=== PATIENT | male | born 1930 | race Caucasian/White ===

== ENCOUNTER 2017-11-15 08:04 | Outpatient (CLI) | payer MEDICARE ==
[2017-11-15] MEDS ORDERED: Iopamidol 370 76% 100 ML VIAL ONE (09:00)
[2017-11-15 09:02] LABS: Estimated GFR-MDRD - POC Greater than 90
--- NOTE | 2017-11-15 10:55 | CT ---
CT ABDOMEN AND PELVIS WITH ORAL AND IV CONTRAST: HISTORY: Gastric stromal tumor removed 2 months ago. FINDINGS: A small left pleural effusion is present. There is a small amount of free fluid in the abdomen, part icularly adjacent to the spleen. No calcified gallstones are seen. The spleen, pancreas, adrenal glands, and kidneys are unremarkable. There is a tiny low-density lesi on in the posterior aspect of the right lobe of the liver close to the joint. This is too small to c haracterize. No free air is seen in the abdomen or pelvis. No lymphadenopathy is seen in the abdome n or pelvis. The small bowel loops are not abnormally dilated. There is prostatic enlargement with thickening of the wall of the urinary bladder. There is a fat-containing right inguinal hernia. There are vascular calcifications without evidence of aneurysmal dilatation of the abdominal aorta. Degenerative changes are present in the spine. The re are a few scattered colonic diverticula. IMPRESSION: 1. Small left pleural effusion. 2. Mild ascites. 3. Tiny low-density lesion in the liver, too small to characterize. 4. Prostatic enlargement with urinary bladder wall thickening. 5. If there is concern for gastric pathology, further evaluation with endoscopy should be performed. 6. Mild colonic diverticulosis. POS: [facility]
== END 2017-11-15 08:05 | disposition home or self-care (01) ==
LOC: SCSCT 08:04
PROVIDERS: ATTEND Family Medicine
DX: C49.A0 Gastrointestinal stromal tumor, unspecified site (principal); J90 Pleural effusion, not elsewhere classified; R18.8 Other ascites; N40.0 Benign prostatic hyperplasia without lower urinary tract symptoms; K57.30 Diverticulosis of large intestine without perforation or abscess without bleeding
CPT/HCPCS: 74177

== ENCOUNTER 2018-04-02 10:01 | Outpatient (CLI) | payer MEDICARE ==
[2018-04-02 10:31] LABS: Estimated GFR-MDRD - POC Greater than 90
--- NOTE | 2018-04-02 13:09 | CT ---
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 COMPARISON: CT from 11/15/17. FINDINGS: There is a large right pleural effusion involving approximately 40-50% of the right hemithorax volume . Moderate left-sided pleural effusion. The left effusion appears to be slightly increased from the c omparison examination. The right pleural effusion is new. 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 No pericardial effusion. There is new moderate volume ascites, as well as extensive third spacing of fluid. There is a fluid containing right-sided direct inguinal hernia. Moderate diverticular changes of the sigmoid colon. Prior gastric surgery. Previously described hepatic hypodensity is not as well seen on today's exam. No hydronephrosis. No retroperitoneal adenopathy. No suspicious lung mass. There is some periosteal new bone formation along the left lateral 9th rib. This may be post treatmen t in nature. IMPRESSION: 1. No evidence of metastatic disease in the chest, abdomen, or pelvis. 2. Very large new right and moderate size left pleural effusions. There is also extensive third spac ing of fluid, as well as moderate volume ascites. This may be due to underlying treatment effect, hyp oproteinemia, and/or diastolic cardiac dysfunction. POS: [facility]
== END 2018-04-02 10:02 | disposition home or self-care (01) ==
LOC: CT 10:01
PROVIDERS: ATTEND Internal Medicine Hematology & Oncology
DX: C49.A2 Gastrointestinal stromal tumor of stomach (principal); J90 Pleural effusion, not elsewhere classified; R18.8 Other ascites
CPT/HCPCS: 71260; 74177; 82565

== ENCOUNTER 2018-04-04 11:13 | Outpatient (CLI) | payer MEDICARE | END 2018-04-04 11:14 | disposition home or self-care (01) | LOC: BICRAD 11:13 | PROVIDERS: ATTEND Internal Medicine Hematology & Oncology | DX: C49.A2 Gastrointestinal stromal tumor of stomach (principal); J90 Pleural effusion, not elsewhere classified | CPT/HCPCS: 71046 ==

== ENCOUNTER 2018-04-24 09:23 | Outpatient (CLI) | payer MEDICARE | END 2018-04-24 09:24 | disposition home or self-care (01) | LOC: BICRAD 09:23 | PROVIDERS: ATTEND Internal Medicine Hematology & Oncology | DX: J90 Pleural effusion, not elsewhere classified (principal); C49.A2 Gastrointestinal stromal tumor of stomach | CPT/HCPCS: 71046; 80048 ==

== ENCOUNTER 2018-08-09 09:29 | Outpatient (CLI) | payer MEDICARE ==
[2018-08-09 10:07] LABS: Estimated GFR-MDRD - POC Greater than 90
--- NOTE | 2018-08-09 11:31 | CT ---
CT CHEST WITH CONTRAST CT ABDOMEN WITH CONTRAST: Date: 08/09/18 COMPARISON: 04/02/18. HISTORY: Gastrointestinal stromal tumor. TECHNIQUE: 1. Multiple contiguous axial images were obtained in a CT of the chest with contrast. Coronal reform ats were performed. 2. Multiple contiguous axial images were obtained in a CT of the abdomen only with contrast. PO cont rast was administered. Coronal reformats were performed. FINDINGS: CT CHEST: A moderate right and small left pleural effusion are again seen. No suspicious pulmonary nodules are seen. The heart is normal in size. No hilar or mediastinal lymphadenopathy seen. The chest wall soft tissues are unremarkable. Degenerative changes are seen in the spine. No suspicious osseous lesions a re identified. CT ABDOMEN: Diffuse soft tissue anasarca is seen. There also appears to be soft tissue anasarca of the omentum an d a small amount of ascites. No free air is identified. Liver, gallbladder, kidneys, adrenal glands, spleen, and pancreas are unremarkable. Visualized large and small bowel are unremarkable. There are postsurgical changes in the stomach. No abdominal adenopa thy appreciated. Degenerative changes are seen in the lumbar spine. IMPRESSION: 1. Stable bilateral pleural effusions. 2. No evidence of intrathoracic metastatic disease. 3. Diffuse soft tissue anasarca and small ascites. 4. No evidence of intraabdominal metastatic disease. POS: [facility]
[2018-08-09] MEDS ORDERED: ISOVUE-370 76%-LOCM 1 ML ONE (13:16)
== END 2018-08-09 09:30 | disposition home or self-care (01) ==
LOC: BICCT 09:29
PROVIDERS: ATTEND Internal Medicine Hematology & Oncology
DX: C49.A2 Gastrointestinal stromal tumor of stomach (principal); J90 Pleural effusion, not elsewhere classified; R60.1 Generalized edema; R18.8 Other ascites
CPT/HCPCS: 71260; 74160; 82565

== ENCOUNTER 2018-09-24 12:17 | Outpatient (CLI) | payer MEDICARE | END 2018-09-24 12:18 | disposition home or self-care (01) | LOC: ULT 12:17 | PROVIDERS: ATTEND Internal Medicine Critical Care Medicine | DX: I50.9 Heart failure, unspecified (principal); I08.3 Combined rheumatic disorders of mitral, aortic and tricuspid valves | CPT/HCPCS: 93306 ==

== ENCOUNTER 2018-10-09 06:02 | Day surgery (SDC) | payer MEDICARE ==
[2018-10-08 10:08] VITALS: BMI 21.5
[2018-10-09] MEDS ORDERED: Midazolam HCl 2 mg/2 ml Vial ONE (06:32)
[2018-10-09] MEDS ORDERED: Fentanyl 100 MCG/2 ML VIAL ONE (06:32)
[2018-10-09] MEDS ORDERED: Iopamidol 370 76% 100 ML VIAL ONE (13:15)
== END 2018-10-09 14:40 | disposition home or self-care (01) ==
LOC: CCL 06:02
PROVIDERS: ATTEND Internal Medicine Cardiovascular Disease
PROC: 4A023N7 Measurement of Cardiac Sampling and Pressure, Left Heart, Percutaneous Approach (ICD-10-PCS; principal; 2018-10-09)
PROC: B2111ZZ Fluoroscopy of Multiple Coronary Arteries using Low Osmolar Contrast (ICD-10-PCS; 2018-10-09)
DX: I42.0 Dilated cardiomyopathy (principal); I10 Essential (primary) hypertension; Z87.891 Personal history of nicotine dependence; Z79.82 Long term (current) use of aspirin; Z79.899 Other long term (current) drug therapy
CPT/HCPCS: 93458; 99152; 99153; C1769; J1644; J2250; J3010; Q9967

== ENCOUNTER 2018-11-26 12:33 | Outpatient (CLI) | payer MEDICARE ==
--- NOTE | 2018-11-26 14:02 | RAD ---
2 VIEWS CHEST: Date: 11/26/18 PROVIDED CLINICAL HISTORY: Gastrointestinal stromal tumor. FINDINGS: Comparison made with the study dated 04/24/18. Cardiac and mediastinal silhouette is unchanged in appearance. Calcified granuloma involves right mid lung zone. Bilateral pleural effusions with adjacent subsegmental atelectatic change again noted, si milar to the prior examination. There is no evidence for pneumothorax. IMPRESSION: Stable radiographic appearance of the chest. POS: [facility]
== END 2018-11-26 12:34 | disposition home or self-care (01) ==
LOC: BICRAD 12:33
PROVIDERS: ATTEND Internal Medicine Hematology & Oncology
DX: C49.A2 Gastrointestinal stromal tumor of stomach (principal)
CPT/HCPCS: 71046

== ENCOUNTER 2019-02-26 12:19 | Outpatient (CLI) | payer MEDICARE ==
[2019-02-26 12:42] LABS: Estimated GFR-MDRD - POC Greater than 90
--- NOTE | 2019-02-26 13:46 | CT ---
CT CHEST WITH IV CONTRAST CT ABDOMEN WITH IV CONTRAST CLINICAL INDICATION: Stomach cancer. COMPARISON: 08/09/2018 FINDINGS: CT THORAX: A moderately large right and small left pleural effusions are again seen with associated passive atel ectasis again noted. Partially calcified biapical pleural and parenchymal scarring is again noted. There is a stable subcentimeter nodular density along the lower aspect of the right major fissure unc hanged from prior exam. This may represent minimal nodular pleural thickening. No discrete parenchymal pulmonary nodule is seen. Stable linear scarring left lower lobe is again present. There has been interval placement of a dual-lead left subclavian AICD device. A small pericardial eff usion is also now present. Vascular calcifications are again seen in the coronary arteries and involving the thoracic aorta. Inc idental note is again made of an aberrant right subclavian artery. No enlarged lymph nodes are seen by CT size criteria. There is mild generalized subcutaneous edema. Few subcentimeter difficult to characterize hypodense lesions are seen in each lobe of the thyroid gl and. CT ABDOMEN: There is suggestion of minimal intrahepatic biliary ductal dilatation. The common duct is not dilated . The gallbladder is mildly distended. A few stable very tiny 3 to 4 mm hypodense lesions are seen within the right as well as left hepatic lobe. A subcentimeter too small to characterize hypodense lesion is again seen in each kidney. The spleen, pancreas, and bilateral adrenal glands demonstrate a normal CT appearance. Postsurgical changes related to partial gastrectomy are again noted. Loops of small bowel are normal in caliber. There is evidence of colonic diverticulosis. There is generalized mesenteric edema with generalized subcutaneous edema related to anasarca. Multilevel degenerative changes are seen in the spine. Stable sclerotic densities are again seen in e ach iliac bone which have an overall nonaggressive appearance. IMPRESSION: 1. Moderately large right and small left pleural effusions with associated passive atelectasis. 2. Small pericardial effusion. 3. Anasarca. 4. Stable very tiny subcentimeter hypodense lesions within each lobe of the liver, and there is sugge stion of minimal intrahepatic biliary ductal dilatation of uncertain etiology. This is unchanged from prior exam. The common duct is normal in caliber. 5. Colonic diverticulosis. 6. Subcentimeter too small to characterize hypodense lesions in each lobe of thyroid gland. 7. Postsurgical changes of the stomach. 8. No CT findings to suggest interval development of metastatic disease.
== END 2019-02-26 12:20 | disposition home or self-care (01) ==
LOC: CT 12:19
PROVIDERS: ATTEND Internal Medicine Hematology & Oncology
DX: C49.A2 Gastrointestinal stromal tumor of stomach (principal); J90 Pleural effusion, not elsewhere classified; J98.11 Atelectasis; I31.3 Pericardial effusion (noninflammatory); R60.1 Generalized edema; K76.9 Liver disease, unspecified; K57.30 Diverticulosis of large intestine without perforation or abscess without bleeding; E07.89 Other specified disorders of thyroid; Z90.3 Acquired absence of stomach [part of]
CPT/HCPCS: 71260; 74160; 82565

== ENCOUNTER 2019-04-02 06:56 | Day surgery (SDC) | payer MEDICARE ==
[2019-04-01 14:59] VITALS: BMI 20.7
--- NOTE | 2019-04-02 08:23 | HP ---
HISTORY OF PRESENT ILLNESS: Mr. Bret Deleon is a very pleasant 88-year-old male who comes for EGD. The patient has had a partial gastrectomy in 2017 in the [place]. The patient apparently had GI bleeding, was seen in the ER because of black tarry stool. He was diagnosed to have gastric stromal tumor, underwent partial gastrectomy. He was also found to have enlarged lymph nodes from the tumor The patient has had abdominal pain off and on over the last 8 months. He also complains of some nausea and vomiting. He has had 3 episodes of vomiting over the past 1 month. The pain is cramping in nature and is across the abdomen. The pain occurs especially after meals. It usually starts about 2-1/2 hours after eating. Interestingly, if he eats small bites of meal when he has pain, the pain goes away; however, the pain comes back again. At night time he does not eat meals, but he drinks small amounts of water to prevent the pain coming back. The patient also has a history of weight loss. The patient had abdominal CAT scan, which was negative for any pathology. The patient is undergoing endoscopy because of abdominal pain, nausea, and also history of weight loss. ALLERGIES: NONE. MEDICAL ILLNESSES: 1. Gastrointestinal stromal tumor, status post partial gastrectomy. 2. Hypertension. 3. Hyperlipidemia. 4. Prostatic enlargement. 5. History of prior [place]. 6. History of poor heart function and has had a pacemaker and AICD placement a few months ago by Dr. Young. SOCIAL HISTORY: The patient is a former smoker. He was using alcohol socially , but stopped drinking alcohol because of abdominal pain. PHYSICAL EXAMINATION: GENERAL: The patient is thin built, appears comfortable. VITAL SIGNS: Pulse is 70 and blood pressure 110/70. EYES: Conjunctivae clear. NECK: Supple. CARDIOVASCULAR: First and second heart sound are normal. LUNGS: Clear to auscultation. ABDOMEN: Soft. Abdomen is nondistended. Abdomen is actually nontender during exam. There is no organomegaly or masses. Bowel sounds are normal. EXTREMITIES: Reveal no edema. ADMITTING DIAGNOSIS: An 88-year-old male with abdominal pain, cramping in nature. It usually occurs after meals. He has had weight loss. The patient is status post partial gastrectomy at the end of 2016 for a gastrointestinal stromal tumor.. The patient comes in for EGD because of abdominal pain, which has been persistent. Job ID: [id number] [facility]
--- NOTE | 2019-04-02 14:15 | OP ---
DATE OF PROCEDURE: 04/02/2019 PROCEDURE PERFORMED: Esophagogastroduodenoscopy. PREOPERATIVE DIAGNOSES: Abdominal pain, history of previous partial gastrectomy for gastrointestinal stromal tumor in 2017. The patient is on Gleevec for metastatic gastrointestinal stromal tumor. The patient had abdominal pain over the last several months. The pain is cramping in nature and notes it postprandial. The patient underwent esophagogastroduodenoscopy. POSTOPERATIVE DIAGNOSES: 1. Hiatal hernia. 2. Distal esophageal ring, nonobstructing. 3. Previous partial gastrectomy with Billroth I anastomosis. 4. Mild gastritis. 5. No pathology to explain for abdominal pain. DESCRIPTION OF PROCEDURE: The patient was placed on his left lateral position and was given sedation by Anesthesia Department. A Pentax video gastroscope under direct vision passed down the oropharynx past the GE junction into the stomach. The esophageal mucosa appeared normal. The GE junction had esophageal ring, which was nonobstructing. He has hiatal hernia. The patient has had a previous partial gastrectomy. The gastric remnant appears healthy for mucosal hyperemia and what appears to be gastric atrophy. The anastomotic area appears healthy and no residual tumor seen. The scope was advanced into the small bowel as far as possible. No pathology seen. The scope was withdrawn back and the stomach decompressed and the scope was removed. DISCHARGE PLANNING: This is an 88-year-old male with previous partial gastrectomy for a GIST in 2017. He did have cramping that is postprandial over the last several months. The EGD showed no pathology to explain the abdominal pain. PLAN: We will obtain an upper GI series small bowel follow-through to see any bowel obstruction. We will also continue abdominal CAT scan in the near future. Job ID: [id number]
== END 2019-04-02 10:52 | disposition home or self-care (01) ==
LOC: SDC 06:56
PROVIDERS: ATTEND Internal Medicine Gastroenterology
PROC: 0DJ08ZZ Inspection of Upper Intestinal Tract, Via Natural or Artificial Opening Endoscopic (ICD-10-PCS; principal; 2019-04-02)
DX: K29.70 Gastritis, unspecified, without bleeding (principal); K44.9 Diaphragmatic hernia without obstruction or gangrene; I10 Essential (primary) hypertension; E78.5 Hyperlipidemia, unspecified; N40.0 Benign prostatic hyperplasia without lower urinary tract symptoms; I25.2 Old myocardial infarction; Z87.891 Personal history of nicotine dependence; Z95.5 Presence of coronary angioplasty implant and graft; Z95.810 Presence of automatic (implantable) cardiac defibrillator; Z90.3 Acquired absence of stomach [part of]

== ENCOUNTER 2019-04-03 09:26 | Outpatient (CLI) | payer MEDICARE ==
--- NOTE | 2019-04-03 11:21 | RAD ---
EXAM: Upper GI HISTORY: Epigastric abdominal pain; history of GIST status post partial gastrectomy COMPARISON: None EXPOSURE: 1.5 minutes; 42.06 Gy per centimeter squared FINDINGS: A double contrast upper GI was performed. Esophageal motility is normal. No mucosal lesions are seen in the esophagus. No extrinsic compression on the esophagus is seen. No hiatal hernia. Moderate gastroesophageal reflux. The stomach is decreased in size from prior partial gastric resection without mucosal abnormality or extrinsic compression. The contrast passes through the stomach into the small bowel without difficulty. The small bowel is normal in appearance without focal abnormality. The contrast passes through the sm all bowel to the level of the colon by one hour. IMPRESSION: Moderate gastroesophageal reflux disease; otherwise unremarkable exam.
== END 2019-04-03 09:27 | disposition home or self-care (01) ==
LOC: RAD 09:26
PROVIDERS: ATTEND Internal Medicine Gastroenterology
DX: R10.13 Epigastric pain (principal); K21.9 Gastro-esophageal reflux disease without esophagitis
CPT/HCPCS: 74245

== ENCOUNTER 2019-06-26 08:10 | Inpatient (IN) | payer MEDICARE ==
[2019-06-26 09:18] LABS: #Basophils 0.1 thou/uL (0.0-0.2); #Eosinphils 0.3 thou/uL (0.0-0.7); #Monocytes 0.3 thou/uL (0.11-0.59); #Neutrophils 2.8 thou/uL (1.40-6.50); %Basophils 1.4 % (0.0-1.0); %Eosinophils 6.4 % (0.0-10.0); %Monocytes 7.2 % (0.0-10.0); %Neutrophils 63.1 % (42.0-75.0); Mean Corpuscular HGB CONC 32.9 g/dL (32.0-36.0); Mean Corpuscular Hemoglobin 32.6 pg (27.0-31.0); Mean Corpuscular Volume 99.2 fL (78.0-98.0); Mean Platelet Volume 8.5 fL (7.4-10.4); Platelet Count 164 thou/uL (130-400); Red Blood Cell (RBC) Count 3.07 mill/uL (4.70-6.10); White Blood Cell (WBC) Count 4.4 thou/uL (4.8-10.8)
[2019-06-26 09:27] LABS: INR-International Normal Ratio 1.2; PTT 29.2 SEC (22.9-36.1); Prothrombin Time 14.7 SEC (12.0-14.7)
[2019-06-26 09:30] LABS: Anion Gap 12 mmol/L (10-20); BUN (Urea Nitrogen) 23 mg/dL (8.4-25.7); Calc. Creatinine Clearance 45 mL/min (70-130); Calcium 8.4 mg/dL (7.8-10.44); Carbon Dioxide 28 mmol/L (23-31); Chloride 106 mmol/L (98-107); Estimated GFR-MDRD 76; Glucose 92 mg/dL (83-110); Potassium 4.5 mmol/L (3.5-5.1); Sodium 141 mmol/L (136-145)
[2019-06-26] MEDS ORDERED: Fentanyl 100 MCG/2 ML VIAL ONE (09:33)
[2019-06-26] MEDS ORDERED: Ketamine 50 MG/ML (10ML VIAL) ONE (09:33)
[2019-06-26] MEDS ORDERED: Midazolam HCl 2 mg/2 ml Vial ONE (09:33)
[2019-06-26] MEDS ORDERED: Promethazine HCl 25 MG/ML VIAL IM PRN (11:56)
[2019-06-26] MEDS ORDERED: Promethazine HCl 25 MG/ML VIAL SLOW IVP PRN (11:56)
[2019-06-26] MEDS ORDERED: Ketorolac Tromethamine 30 MG/ML VIAL IVP PRN (11:56)
[2019-06-26] MEDS ORDERED: PACU-Morphine 4MG/ML VIAL SLOW IVP PRN (11:56)
[2019-06-26] MEDS ORDERED: Acetaminophen/Codeine 30-300mg Tablet PO PRN ×2 (12:23)
--- NOTE | 2019-06-26 15:18 | OP ---
DATE OF PROCEDURE: 06/26/2019 PROCEDURE PERFORMED: ICD extraction. REASON FOR PROCEDURE: Mr. Deleon is an 88-year-old man with history of CHF, nonischemic cardiomyopathy, and frequent PVCs, who underwent a dual-chamber ICD implantation on February 01, 2019. His wound has had poor healing and eventual erosion of the pocket was noted due to very thin body habitus. He also lost 20 pounds of weight, here for the ICD evacuation. DESCRIPTION OF PROCEDURE: The patient received deep sedation by Anesthesia specialist, see separate report. After adequate level of sedation achieved, the left precordial area was prepped, draped, and anesthetized using subcutaneous lidocaine. Incision was made over the previous incision site and the necrotic tissue around the incision site was excised. The pacemaker was removed from the pocket. Hemostasis was obtained with cautery. The leads were freed up. The fixation coils were disengaged and with simple traction, both leads were easily removed. The irrigation of pocket was performed. A perforated drain was placed at the inferior part of the pocket and vacuum tube was attached. Cultures also sent from the pocket. The wound was closed with three layers of Vicryl suture. Dermabond was applied. Pressure dressing was applied towards the end of the case. CONCLUSION: 1. Successful evacuation of dual-chamber ICD system. 2. Drain placement. 3. Cultures pending from the pocket. PLAN: Continue IV antibiotics and transition to p.o. Drain removal once the drainage subsided. Job ID: [id number]
[2019-06-26] MEDS: Vancomycin HCl 1 GM in Premix Bag 1 BAG IVPB SCH (16:59)
[2019-06-27] MEDS ORDERED: Furosemide 20 MG TAB PO PRN ×2 (07:43→07:53)
[2019-06-27] MEDS ORDERED: Tamsulosin HCl 0.4 MG CAP PO SCH (09:00)
[2019-06-27] MEDS ORDERED: Amiodarone 200 MG TAB PO SCH (09:00)
[2019-06-27] MEDS ORDERED: Metoprolol Tartrate 25 MG TAB PO SCH ×2 (09:00)
[2019-06-27] MEDS: Tamsulosin HCl 0.4 MG CAP PO SCH (09:28)
[2019-06-27] MEDS: Amiodarone 200 MG TAB PO SCH (09:34)
[2019-06-27 11:07] LABS: #Eosinphils 0.5 thou/uL (0.0-0.7); #Lymphocytes 1.6 thou/uL (1.20-3.40); #Monocytes 0.4 thou/uL (0.11-0.59); #Neutrophils 4.6 thou/uL (1.40-6.50); %Basophils 0.7 % (0.0-1.0); %Eosinophils 6.9 % (0.0-10.0); %Lymphocytes 22.2 % (21.0-51.0); %Monocytes 5.7 % (0.0-10.0); %Neutrophils 64.6 % (42.0-75.0); Hemoglobin 10.6 g/dL (14.0-18.0); Mean Corpuscular HGB CONC 31.9 g/dL (32.0-36.0); Mean Corpuscular Hemoglobin 31.9 pg (27.0-31.0); Mean Platelet Volume 7.2 fL (7.4-10.4); Platelet Count 175 thou/uL (130-400); RBC Distribution Width 12.9 % (11.5-14.5); Red Blood Cell (RBC) Count 3.31 mill/uL (4.70-6.10); White Blood Cell (WBC) Count 7.1 thou/uL (4.8-10.8)
[2019-06-27 11:29] LABS: ALT (SGPT) 11 U/L (8-55); AST (SGOT) 16 U/L (5-34); Albumin 3.4 g/dL (3.4-4.8); Alkaline Phosphatase 73 U/L (40-110); Anion Gap 9 mmol/L (10-20); BUN (Urea Nitrogen) 16 mg/dL (8.4-25.7); Bilirubin, Total 0.2 mg/dL (0.2-1.2); Calc. Creatinine Clearance 50 mL/min (70-130); Calcium 8.4 mg/dL (7.8-10.44); Carbon Dioxide 29 mmol/L (23-31); Chloride 106 mmol/L (98-107); Estimated GFR-MDRD 84; Globulin 2.5 g/dL (2.4-3.5); Glucose 77 mg/dL (83-110); Magnesium 2.2 mg/dL (1.6-2.6); Potassium 4.4 mmol/L (3.5-5.1); Protein, Total 5.9 g/dL (5.8-8.1); Sodium 140 mmol/L (136-145)
[2019-06-27] MEDS: Metoprolol Tartrate 25 MG TAB PO SCH (12:25)
--- NOTE | 2019-06-27 12:59 | HP ---
PRIMARY CARE PHYSICIAN: Dr. Aponte. CHIEF COMPLAINT: AICD extraction. HISTORY OF PRESENT ILLNESS: Mr. Deleon is an 88-year-old man with a past medical history of CHF, non-ischemic cardiomyopathy, frequent PVCs, who underwent a dual-chamber ICD implantation on February 01, 2019; however, has since then had poor wound healing and eventually the AICD had caused an erosion of the pocket. Therefore, the patient was brought in by Dr. Day yesterday for ICD extraction. The procedure was very successful. A drain was placed, and cultures were ordered and sent to [facility] and pending at this time. Currently, the patient denies any fever, chills, any headache, blurred vision, dizziness, any palpitations, shortness of breath, abdominal pain, nausea, or vomiting. He states that he is little sore around the site; however, this is much improved today. He states ever since that he had gotten the ICD placed back in January, shortly after that he had started noticing problems which they gradually worsened over the last several months. The patient does have also a history of very thin body habitus. REVIEW OF SYSTEMS: All other systems reviewed and found to be negative unless mentioned in the HPI. PAST MEDICAL HISTORY: 1. Nonischemic cardiomyopathy. 2. History of coronary artery disease with prior PA. 3. Hypertension. 4. Hyperlipidemia. 5. Gastrointestinal stromal tumor. 6. Prostate enlargement. PAST SURGICAL HISTORY: 1. Partial gastrectomy. 2. AICD placement and extraction. SOCIAL HISTORY: The patient denies alcohol, tobacco, or any illicit drug use. He states he is a former smoker and quit over 10 years ago. KNOWN ALLERGIES: No known drug allergies. CURRENT HOME MEDICATIONS: 1. Imatinib mesylate 400 mg p.o. at bedtime. 2. Loratadine 10 mg daily. 3. Montelukast 10 mg daily. 4. Amiodarone 200 mg b.i.d. 5. Aspirin 81 mg daily. 6. Furosemide 20 mg as needed for edema. 7. Metoprolol 25 mg daily. 8. Protonix 40 mg daily. 9. Entresto 24/26 mg b.i.d. 10. Tamsulosin 0.4 mg daily. PHYSICAL EXAMINATION: VITAL SIGNS: BP 122/58, pulse 56, respirations 16, temperature 98.2, O2 saturation 98% on room air. GENERAL: The patient is awake, alert, and oriented x3. He is currently lying comfortably in bed and in no acute distress. HEENT: Atraumatic, normocephalic. Pupils are round, reactive to light. Extraocular muscles intact. Moist mucous membranes noted. NECK: Soft and supple. Trachea in midline. CARDIOVASCULAR: Positive S1, S2. Regular rate and rhythm. No murmur auscultated. The patient's surgical site shows signs of erythema and surrounding induration with some mild tenderness to palpation with no warmth, and the drain is in place and draining a red clear blood. RESPIRATORY: Clear to auscultation bilaterally. No wheezes, rales, or rhonchi. ABDOMEN: Soft, nontender. Bowel sounds present. EXTREMITIES: Moves all extremities equal. Pedal and radial pulses 2+ bilaterally. No edema noted. NEUROLOGIC: Cranial nerves 2 through 12 grossly intact. No focal deficits noted. Speech is intact and normal. Gait is not assessed. SKIN: Warm, dry, and intact. The patient has skin changes to the left upper chest noted above. PSYCHIATRIC: Good mood and affect. LABORATORY DATA: WBC 4.4, RBC 3.07, hemoglobin 10.0, hematocrit 30.5, platelets 164. PT 14.7, INR 1.2, PTT 29.2. Sodium 141, potassium 4.5, anion gap 12, BUN 23, creatinine 0.94, estimated GFR 76, glucose 92. DIAGNOSTIC IMAGING: Echocardiogram, pending. ASSESSMENT/PLAN: 1. AICD erosion, status post ICD extraction by Dr. Day. Cultures are pending at this time. The patient has a drain in place. He is currently being treated with IV antibiotics including broad-spectrum IV vancomycin. Once his cultures are final, he will likely be transitioned to oral antibiotics prior to discharge. 2. History of nonischemic cardiomyopathy with a reduced EF, his current echocardiogram is pending at this time. He will be restarted on his home regimen including Entresto. 3. History of hypertension. 4. Hyperlipidemia. 5. History of benign prostate hypertrophy. 6. History of gastrointestinal tumor. 7. Deep venous thrombosis and gastrointestinal prophylaxis. 8. Code status is full code. 9. Surrogate decision maker is his daughter, Jesi Reyes. DISPOSITION: Pending further workup, clinical findings, and patient's progress. Job ID: [id number]
[2019-06-27 14:31] VITALS: BMI 17.9
[2019-06-27] MEDS: Vancomycin HCl 1 GM in Premix Bag 1 BAG IVPB SCH (14:35)
[2019-06-27] MEDS ORDERED: Aspirin 81 mg Enteric Coated Tablet PO SCH (21:00)
[2019-06-27] MEDS ORDERED: Ondansetron ODT 4 MG TAB PO PRN (22:24)
[2019-06-27] MEDS ORDERED: Ondansetron PF 4 MG/2 ML Vial IVP PRN (22:24)
[2019-06-27] MEDS ORDERED: Lidocaine 2% Viscous Solution 10 ML, Aluminum & Magnesium Hydroxide 30 ML SSW SCH (22:30)
[2019-06-28 04:45] LABS: #Eosinphils 0.2 thou/uL (0.0-0.7); #Lymphocytes 1.2 thou/uL (1.20-3.40); #Monocytes 0.4 thou/uL (0.11-0.59); #Neutrophils 4.3 thou/uL (1.40-6.50); %Basophils 0.7 % (0.0-1.0); %Eosinophils 2.5 % (0.0-10.0); %Lymphocytes 20.3 % (21.0-51.0); %Monocytes 6.8 % (0.0-10.0); %Neutrophils 69.7 % (42.0-75.0); Hemoglobin 9.5 g/dL (14.0-18.0); Mean Corpuscular HGB CONC 32.9 g/dL (32.0-36.0); Mean Corpuscular Hemoglobin 32.9 pg (27.0-31.0); Mean Corpuscular Volume 99.8 fL (78.0-98.0); Mean Platelet Volume 7.5 fL (7.4-10.4); Platelet Count 164 thou/uL (130-400); RBC Distribution Width 12.7 % (11.5-14.5); White Blood Cell (WBC) Count 6.1 thou/uL (4.8-10.8)
[2019-06-28 05:01] LABS: Anion Gap 8 mmol/L (10-20); BUN (Urea Nitrogen) 22 mg/dL (8.4-25.7); Calc. Creatinine Clearance 44 mL/min (70-130); Calcium 8.1 mg/dL (7.8-10.44); Carbon Dioxide 31 mmol/L (23-31); Chloride 105 mmol/L (98-107); Estimated GFR-MDRD 74; Glucose 96 mg/dL (83-110); Potassium 4.5 mmol/L (3.5-5.1); Sodium 139 mmol/L (136-145)
--- NOTE | 2019-06-28 07:26 | PRG ---
DATE OF SERVICE: 06/27/2019 SUBJECTIVE: Mr. Deleon seems to be doing fair one day after his ICD extraction. Minor discomforts noted via vacuum tube from the wound drainage. He had 5 to 10 mL of liquid each shift. OBJECTIVE: VITAL SIGNS: Blood pressure is 128/59, heart rate 61, respirations 16, and temperature 98.5 degrees Fahrenheit. GENERAL: Alert and oriented man, in no apparent distress. NECK: Supple. Jugular veins not distended. CHEST: Coarse without crackles. HEART: Sounds are regular rate and rhythm. No murmur or gallop. ABDOMEN: Benign. Bowel sounds positive. EXTREMITIES: Lower extremities without edema, clubbing, or cyanosis. The left precordial ICD extraction site is with approximated wound edges and drain in place. LABORATORY DATA: Hemoglobin 10.6, white count 7.1, and platelet count is 175. Sodium 140, potassium 4.4, BUN is 16, and creatinine 0.86. Telemetry strips reviewed revealing mild sinus bradycardia, improving overnight. The blood cultures so far show no growth to date and no organisms on the pocket swab. ASSESSMENT AND PLAN: Mr. Deleon is a pleasant 88-year-old man with history of congestive heart failure and nonischemic cardiomyopathy, gastric cancer, although under remission, who presented with ICD pocket erosion. The ICD was extracted. The leads were removed. The wounds were approximated and a drain was placed yesterday. He is doing well following day, and so far no signs of systemic infection are seen. Blood cultures so far negative. He is continued on vancomycin and drain is in place. Our plan is to continue observation on vancomycin. Follow up on blood cultures, likely remove drainage tube tomorrow and hopefully discharge the patient home bradycardia has improved with cutting back on amiodarone. He can resume beta blockers, which can be titrated as tolerated. Job ID: [id number]
[2019-06-28] MEDS: Amiodarone 200 MG TAB PO SCH (09:18)
[2019-06-28] MEDS: Tamsulosin HCl 0.4 MG CAP PO SCH (09:20)
[2019-06-28] MEDS: Metoprolol Tartrate 25 MG TAB PO SCH (12:24)
--- NOTE | 2019-06-28 12:38 | PDOC.CPN ---
- Subjective Date: 06/28/19 Time: 12:36 Interval history: EP PROGRESS NOTE: 06/28/19 Seen as follow up after ICD explant. EF now >35% by echo before explant. Pt feels well. No fever, dizziness, passing out. Minimal pain around explant site. - Review of Systems General: denies: fever/chills Respiratory: denies: cough, congestion, shortness of breath, exercise intolerance Cardiovascular: denies: chest pain, palpitation, edema, paroxysmal nocturnal dyspnea, orthopnea Gastrointestinal: denies: nausea, vomiting, diarrhea, constipation, abd pain, GI bleeding Musculoskeletal: denies: pain, tenderness Neurological: denies: syncope - Objective Allergies/Adverse Reactions: Allergies Allergy/AdvReac Type Severity Reaction Status Date / Time No Known Allergies Allergy Verified 06/25/19 12:51 Visit Medications: Current Medications Acetaminophen/Codeine Phosphate (Tylenol #3) 1 tab PO Q4H PRN PRN Reason: Mild Pain (1-3) Acetaminophen/Codeine Phosphate (Tylenol #3) 2 tab PO Q4H PRN PRN Reason: Moderate Pain (4-6) Amiodarone HCl (Cordarone) 100 mg PO DAILY [facility] Last Admin: 06/28/19 09:18 Dose: 100 mg Aspirin (Ecotrin) 81 mg PO HS [facility] Last Admin: 06/27/19 21:50 Dose: 81 mg Clindamycin HCl (Cleocin) 300 mg PO Q8HR [facility] Furosemide (Lasix) 20 mg PO PRN PRN PRN Reason: Edema Vancomycin HCl 1 gm/ Device 200 mls @ 200 mls/hr IVPB Q24HR [facility] Last Admin: 06/27/19 14:35 Dose: 200 mls Metoprolol Tartrate (Lopressor) 12.5 mg PO 1200 [facility] Last Admin: 06/28/19 12:24 Dose: 12.5 mg Miscellaneous Medication (Pharmacy To Dose) 1 each IVPB PRN PRN PRN Reason: Pharmacy to dose Ondansetron HCl (Zofran Odt) 4 mg PO Q6H PRN PRN Reason: Nausea/Vomiting Ondansetron HCl (Zofran) 4 mg IVP Q6H PRN PRN Reason: Nausea/Vomiting Pantoprazole Sodium (Protonix) 40 mg PO DAILY [facility] Last Admin: 06/28/19 09:20 Dose: 40 mg Sacubitril/Valsartan (Entresto 24 Mg-26 Mg Tablet) 1 tab PO BID [facility] Last Admin: 06/28/19 09:20 Dose: 1 tab Sodium Chloride (Flush - Normal Saline) 10 ml IVF Q12HR [facility] Last Admin: 06/28/19 09:20 Dose: 10 ml Sodium Chloride (Flush - Normal Saline) 10 ml IVF PRN PRN PRN Reason: Saline Flush Tamsulosin HCl (Flomax) 0.4 mg PO DAILY [facility] Last Admin: 06/28/19 09:20 Dose: 0.4 mg Vital Signs & Weight: Vital Signs Temp Pulse Resp BP Pulse Ox 06/28/19 11:00 97.8 F 56 L 18 144/67 H 98 06/28/19 07:55 98.5 F 61 16 135/64 97 06/28/19 03:56 97.6 F 60 16 132/62 98 Admit Weight 124 lb Weight 125 lb 6 oz - Physical Exam General: alert & oriented x3, appears well, no apparent distress HEENT: mucus membranes moist, normocephaly Neck: negative: supple neck Cardiac: negative: regular rate and rhythm Lungs: negative: normal breath sounds Neuro: negative: grossly intact Abdomen: negative: active bowel sounds Extremities: negative: no cyanosis Skin: other (thin with scattered echymosis. Mepilex over L ICD explant site is intact without drainage. bulb drain removed which had scant bloody drainage.) - Labs Result Diagrams: 06/28/19 04:01 06/28/19 04:01 - Telemetry Sinus rhythms and dysrhythmias: sinus rhythm - Assessment/Plan Assessment/Plan: 1. ICD explant d/t pocket erosion - wound and blood cultures negative so far at 48 hrs. No signs of systemic infection - wound edges remain approximated. dressing CDI. Spoke with wound care who will give additional instructions for care at home - bulb drain removed which had scant bloody drainage. 2. Gastric cancer 3. Hx of CHF and Ischemic cardiomyopathy (well compensated and not part of this admission) OK to DC by EP. Wound check scheduled and in DC packet. Clindamycin 300mg PO TID x 10 days upon DC. Pt has 7 day supply at home so additional 3 days supply was sent by [facility] to patient pharmacy. Please continue amiodarone 100mg PO daily upon DC.
[2019-06-28 13:39] LABS: Vancomycin, Trough 5.1 ug/mL
[2019-06-28] MEDS ORDERED: Vancomycin HCl 1.75 GM in Sodium Chloride 0.9% 500 ML IVPB SCH (14:00)
[2019-06-28] MEDS ORDERED: Clindamycin 150 MG CAP PO SCH (14:00)
[2019-06-28 15:40] VITALS: BP 140/65; TEMP 97.9
--- NOTE | 2019-06-28 15:44 | PQF ---
CLINICAL DOCUMENTATION IMPROVEMENT CLARIFICATION FORM: ICD-10 Updated PLEASE DO AN ADDENDUM TO THE PROGRESS NOTE WITH ANY DOCUMENTATION UPDATES OR ADDITIONS AND CARRY THROUGH TO DC SUMMARY. THANK YOU. Date: 06/28/2019 ATTN: Dr. Jay Please exercise your independent, professional judgment in responding to the clarification form. 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 Operative Note 06/26: "wound has had poor healing and eventual erosion of the pocket was noted due to very thin body habitus. He has lost 20 pounds of weight." TREATMENT: 06/27 Woodyard Operator Assessment Triggered for BMI 17.8/ 14-23 lb weight loss/ wound care consult Order 06/27: Supplement Ensure Enlive BID Moderate Malnutrition (in acute illness) Energy Intake: <75% of estimated energy requirement for > 7 days Weight Loss: 1-2%/1 week; 5%/ 1 month; 7.5%/3 months Other: mild body fat loss; mild muscle mass loss; mild fluid accumulation; Severe Malnutrition (in acute illness) Energy Intake: < 50% of estimated energy requirement for > 5 days Weight Loss: >1-2%/1 week; >5%/1 month; >7.5%/3 months Other: moderate body fat loss; moderate muscle mass loss; moderate- severe fluid accumulation; measurably reduced environmental lawyer strength Moderate Malnutrition (in chronic illness) Energy Intake: <75% of estimated energy requirement for >1 month Weight Loss: 5%/1 month; 7.5%/3 months; 10%/6 months; 20%/1 year Other: mild body fat loss; mild muscle mass loss; mild fluid accumulation Severe Malnutrition (in chronic illness) Energy Intake: <75% of estimated energy requirement for >1 month Weight Loss: >5%/1 month; >7.5%/3 months; >10%/6 months; >20%/1 year Other: severe body fat loss; severe muscle mass loss; severe fluid accumulation; measurably reduced environmental lawyer strength Thank you, Nichelle (This form is maintained as a part of the permanent medical record) 2014 [employer]. All Rights Reserved Nichelle Phillips RN, BSN [email or web address] Office: [phone] [facility] CENTERCrist[facility]
--- NOTE | 2019-06-29 20:49 | DIS ---
DATE OF ADMISSION: 06/26/2019 DATE OF DISCHARGE: 06/28/2019 DISCHARGE DIAGNOSES: 1. Pocket erosion of ICD. 2. History of ischemic cardiomyopathy. 3. History of gastrointestinal stromal tumor, status post partial gastrectomy. 4. Hypertension. 5. Hyperlipidemia. 6. Benign prostatic hyperplasia. HISTORY OF PRESENT ILLNESS: The patient is an 88-year-old male with a history of cardiomyopathy with an ejection fraction noted on this admission to be at 35% to 40%. The patient has concentric LVH. He had a prior ICD placement, but unfortunately had one episode, in which the defibrillator discharged several months ago. Since that time, he has continued to have some irritation at the pocket with some redness and evidence of inflammation that is ultimately eroded the pocket to the skin area, and the patient is presenting for explantation. HOSPITAL COURSE: The patient was admitted to the hospital. He was seen in consultation by Dr. Day, who did perform the explantation of the pacemaker and AICD with the leads. The pocket fluid was cultured, and a drain was placed. The patient tolerated the procedure well, was watched overnight. Cultures remained negative. His vital signs remained normal, and he felt well. Results on the echocardiogram revealed EF of 35% to 40% with LVH and some diastolic dysfunction, otherwise unremarkable. The patient felt like he was probably not going to go forward with replacing the AICD, however, that was discussion for later time. He was ultimately felt to be stable for discharge to have an outpatient followup. DISCHARGE PHYSICAL EXAMINATION: VITAL SIGNS: On the day of discharge, temperature was 97.9, pulse 53, respirations 18, O2 saturation 99% on room air, BP was 140/65. GENERAL APPEARANCE: Age-appropriate male. He is very pleasant, cooperative, no distress. HEART: Regular rate and rhythm. No murmurs, gallops, or rubs. LUNGS: Clear bilaterally. ABDOMEN: Soft, nontender, and nondistended. Positive bowel sounds. No masses. No organomegaly. EXTREMITIES: No cyanosis, clubbing, or edema. SKIN: Left chest pocket appears healthy post-explantation. DISPOSITION: The patient is discharged to home. DIET: He is to continue heart healthy diet. ACTIVITY: His activity level is as tolerated other than those restrictions placed on him by Dr. Day regarding the left upper extremity. DISCHARGE MEDICATIONS: He will continue with his usual home medications with no changes or additions. FOLLOWUP: He will follow up with Dr. Aponte and he will follow up with Dr. Day on 07/11/2019 at 10:00 a.m. He can return to the hospital at any time should he feel the need to do so. Job ID: [id number]
--- NOTE | 2019-07-01 22:49 | EKG ---
Test Reason : PREOP Blood Pressure : / mmHG Vent. Rate : 053 BPM Atrial Rate : 053 BPM P-R Int : 204 ms QRS Dur : 096 ms QT Int : 464 ms P-R-T Axes : 086 070 087 degrees QTc Int : 435 ms Sinus bradycardia Otherwise normal ECG No previous ECGs available Confirmed by GORDON NOE M.D. ([id number]) on 07/01/2019 10:49:21 PM Referred By: [facility] Confirmed By:GORDON NOE M.D.
== END 2019-06-28 16:38 | disposition home or self-care (01) | DRG 261 ==
LOC: CCL 08:10 → 2NO 12:10
PROVIDERS: ADMIT Internal Medicine; ATTEND Internal Medicine
PROC: 0JPT0PZ Removal of Cardiac Rhythm Related Device from Trunk Subcutaneous Tissue and Fascia, Open Approach (ICD-10-PCS; principal; 2019-06-26)
PROC: 02PA3MZ Removal of Cardiac Lead from Heart, Percutaneous Approach (ICD-10-PCS; 2019-06-27)
DX: T82.198A Other mechanical complication of other cardiac electronic device, initial encounter (principal); I42.8 Other cardiomyopathies; I50.22 Chronic systolic (congestive) heart failure; E44.0 Moderate protein-calorie malnutrition; Z68.1 Body mass index [BMI] 19.9 or less, adult; Y83.8 Other surgical procedures as the cause of abnormal reaction of the patient, or of later complication, without mention of misadventure at the time of the procedure; I25.10 Atherosclerotic heart disease of native coronary artery without angina pectoris; I25.2 Old myocardial infarction; K21.9 Gastro-esophageal reflux disease without esophagitis; I11.0 Hypertensive heart disease with heart failure; E78.5 Hyperlipidemia, unspecified; N40.0 Benign prostatic hyperplasia without lower urinary tract symptoms; Z90.3 Acquired absence of stomach [part of]; Z87.891 Personal history of nicotine dependence; Z79.82 Long term (current) use of aspirin; Z79.899 Other long term (current) drug therapy; Z85.028 Personal history of other malignant neoplasm of stomach
CPT/HCPCS: 33241; 33244; 36415; 80048; 80053; 80202; 83735; 85025; 85610; 85730; 87040; 87070; 87205; 93005; 93010; 93306; J0690; J2250; J3010; J3370; J3490

== ENCOUNTER 2019-08-23 10:33 | Outpatient (CLI) | payer MEDICARE ==
[2019-08-23 11:53] LABS: Hemoglobin 11.6 g/dL (14.0-18.0); Mean Corpuscular HGB CONC 31.2 g/dL (32.0-36.0); Mean Corpuscular Hemoglobin 29.5 pg (27.0-31.0); Mean Corpuscular Volume 94.7 fL (78.0-98.0); Mean Platelet Volume 8.1 fL (7.4-10.4); Platelet Count 198 thou/uL (130-400); RBC Distribution Width 12.2 % (11.5-14.5); Red Blood Cell (RBC) Count 3.94 mill/uL (4.70-6.10); White Blood Cell (WBC) Count 6.9 thou/uL (4.8-10.8)
[2019-08-23 12:09] LABS: Anion Gap 7 mmol/L (10-20); BUN (Urea Nitrogen) 23 mg/dL (8.4-25.7); Calc. Creatinine Clearance 0 mL/min (70-130); Calcium 9.1 mg/dL (7.8-10.44); Carbon Dioxide 33 mmol/L (23-31); Chloride 105 mmol/L (98-107); Estimated GFR-MDRD Greater than 90; Glucose 92 mg/dL (83-110); Potassium 4.4 mmol/L (3.5-5.1); Sodium 141 mmol/L (136-145)
== END 2019-08-23 10:34 | disposition home or self-care (01) ==
LOC: LABBT 10:33
PROVIDERS: ATTEND Surgery
DX: Z01.812 Encounter for preprocedural laboratory examination (principal); K40.20 Bilateral inguinal hernia, without obstruction or gangrene, not specified as recurrent
CPT/HCPCS: 80048; 85027; 93005; 93010

== ENCOUNTER 2019-08-27 05:50 | Day surgery (SDC) | payer MEDICARE ==
[2019-08-23 10:44] VITALS: BMI 18.6
[2019-08-27] MEDS ORDERED: Lidocaine 2% PF 5 ML VIAL ONE (06:52)
[2019-08-27] MEDS ORDERED: Bupivacaine PF 0.5% 30 ML VIAL ONE ×2 (06:52→07:39)
[2019-08-27] MEDS ORDERED: EPINEPHrine 1 MG/ML AMP ONE (06:52)
[2019-08-27] MEDS ORDERED: Bupivacaine 0.25% HCL 30 ML VIAL ONE (06:52)
[2019-08-27] MEDS ORDERED: Fentanyl 100 MCG/2 ML VIAL ONE (06:53)
[2019-08-27] MEDS ORDERED: Lidocaine 1% w/Epinephrine 1:100K 20 ML VIAL ONE (06:56)
[2019-08-27] MEDS ORDERED: Propofol 500 MG/50 ML VIAL ONE (07:20)
--- NOTE | 2019-08-27 14:47 | OP ---
DATE OF PROCEDURE: 08/27/2019 PREOPERATIVE DIAGNOSIS: Bilateral inguinal hernia. POSTOPERATIVE DIAGNOSIS: Bilateral inguinal hernia. PROCEDURE PERFORMED: Bilateral inguinal hernia repair with mesh, PHS extended mesh. ANESTHESIA: General. ESTIMATED BLOOD LOSS: Minimal. COMPLICATIONS: None. SPECIMENS: None. FINDINGS: Bilateral inguinal hernia. DESCRIPTION OF PROCEDURE: The patient was taken to the operating room and laid supine on the operating room table. After general anesthetic was obtained, bilateral groins and abdomen were shaved, prepped, and draped in a sterile fashion. An oblique incision was made in the bilateral lower abdomen just above pubic tubercle, cautery dissected down through Karol's to expose external oblique. External fibers were opened along the external oblique through the external ring. Contents of the inguinal canal bilaterally were mobilized on the pubic tubercle using a Rachel drain. Bilateral dissection of the spermatic cord structures revealed no obvious indirect hernia. There was bilateral direct hernias. The preperitoneal space was entered through the bilateral direct defect and bluntly dissected using a wet unraveled Ray-Dileep. PHS extended mesh was brought into the sterile field and the underlay was placed in the bilateral preperitoneal space. The bilateral overlay was laid in the floor of the inguinal canal. The overlays were sewn distally to the pubic tubercle medially to the transverse arch and laterally to the shelving edge of the inguinal ligament using permanent braided suture. The mesh was cut to incorporate the internal ring and reapproximated to the shelving edge of inguinal ligament using permanent braided suture. The wound was irrigated. Local anesthetic was applied. Bilateral tunnel catheters for postop pain were threaded from above incision and left on top of the mesh. The wounds were bilaterally closed using 3-0 Vicryl in the Karol's and external oblique. Bilateral skin was closed using running 4-0 Monocryl and Dermabond. The patient was sent to Recovery in stable condition. All instrument counts, needle counts, and lap counts were correct. Job ID: [id number]
== END 2019-08-27 11:14 | disposition home or self-care (01) ==
LOC: SDC 05:50
PROVIDERS: ATTEND Surgery
PROC: 0YUA0JZ Supplement Bilateral Inguinal Region with Synthetic Substitute, Open Approach (ICD-10-PCS; principal; 2019-08-27)
DX: K40.20 Bilateral inguinal hernia, without obstruction or gangrene, not specified as recurrent (principal); E78.5 Hyperlipidemia, unspecified; I10 Essential (primary) hypertension; N40.0 Benign prostatic hyperplasia without lower urinary tract symptoms; I42.8 Other cardiomyopathies; Z79.899 Other long term (current) drug therapy; Z90.3 Acquired absence of stomach [part of]; Z95.810 Presence of automatic (implantable) cardiac defibrillator
CPT/HCPCS: J0131; J0171; J0690; J2001; J2704; J3010; S0020

== ENCOUNTER 2019-11-29 09:43 | Outpatient (CLI) | payer MEDICARE ==
[2019-11-29] MEDS ORDERED: Iopamidol-370 76% 500 ML 1 ML ONE (09:45)
--- NOTE | 2019-11-29 13:02 | CT ---
CT OF THE CHEST AND ABDOMEN WITH IV CONTRAST: INDICATION: History of ___ tumor status post removal in July of 2017. COMPARISON: Prior examination dated 02/26/2019. FINDINGS: CHEST: No suspicious pulmonary nodule is evident. The previously seen pleural effusions have resolved. The re are areas of subsegmental volume loss versus scarring within the left lower lobe. There are coronary artery thoracic aortic calcifications. 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 ABDOMEN: There is postprocedural change of a partial gastric resection and gastroenteric anastomosis in the le ft upper quadrant. No residual soft tissue mass is evident. A small amount of fluid is still seen within the region of the gastrohepatic ligament which is nonspecific. Visualized aspects of the pancreas and adrenal glands are normal-appearing. No definite pathological ly enlarged lymph nodes are evident. There is stable mild intrahepatic biliary ductal dilatation whi ch is nonspecific. The gallbladder is minimally distended. There are bilateral extrarenal pelves. No shanta hydronephrosis is evident. There are moderate vascu lar calcifications noted involving the abdominal aorta. No free fluid or enlarged lymph nodes are ev ident. There is diffuse osteopenia. There is scattered degenerative and osteoarthritic change. No definite acute osseous abnormality is evident. IMPRESSION: 1. No evidence to suggest recurrent disease within the chest and abdomen. 2. Resolution of previously seen bilateral pleural effusions, anasarca, and ascites. A small amount of fluid remains within the left upper quadrant of the abdomen near the spleen and gastrosplenic lig ament. 3. Stable nonspecific mild intrahepatic biliary ductal dilatation. POS: CET
== END 2019-11-29 09:44 | disposition home or self-care (01) ==
LOC: BICCT 09:43
PROVIDERS: ATTEND Internal Medicine Hematology & Oncology
DX: C49.A2 Gastrointestinal stromal tumor of stomach (principal); K83.8 Other specified diseases of biliary tract
CPT/HCPCS: 71260; 74160; 82565; Q9967

== ENCOUNTER 2020-10-20 09:21 | Outpatient (CLI) | payer MEDICARE ==
[2020-10-20] MEDS ORDERED: Iopamidol 370 76% 100 ML VIAL ONE (10:28)
--- NOTE | 2020-10-20 10:48 | CT ---
CT Chest W Con CT abdomen with contrast History: GI stromal tumor Comparison: CT chest and abdomen with contrast November 29, 2019 Findings: Lungs are clear. No pneumothorax. Mild scarring left lower lobe. 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 No suspicious pulmonary nodule. Likely a small polyp along the proximal left mainstem bronchus just t he left of the adolfo measuring up to 1 cm. No pericardial effusion. Prior gastric antrectomy with gastroenteroanastomosis which is intact. 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 No abnormal mass within the resection bed. No dilated loops of large or small bowel. The spleen and liver as well as the gallbladder are unremar kable. Portal vein is patent. Adrenal glands normal. No abnormal renal enhancing mass. No hydronephrosis. Celiac trunk and superior mesenteric arteries are patent. No suspicious osteolytic or osteoblastic lesions. Appendix is visualized and is normal. Impression: 1. No evidence for disease recurrence or metastasis. 2. 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
== END 2020-10-20 09:22 | disposition home or self-care (01) ==
LOC: BICCT 09:21
PROVIDERS: ATTEND Internal Medicine Hematology & Oncology
DX: C49.A2 Gastrointestinal stromal tumor of stomach (principal); K31.6 Fistula of stomach and duodenum
CPT/HCPCS: 71260; 74160; 82565; Q9967

== ENCOUNTER 2021-11-02 09:40 | Outpatient (CLI) | payer MEDICARE ==
[2021-11-02] MEDS ORDERED: Iopamidol-370 76% 500 ML 1 ML ONE (12:18)
== END 2021-11-02 09:41 | disposition home or self-care (01) ==
LOC: CT 09:40
PROVIDERS: ATTEND Internal Medicine Hematology & Oncology
DX: C49.A2 Gastrointestinal stromal tumor of stomach (principal); K80.20 Calculus of gallbladder without cholecystitis without obstruction; K86.89 Other specified diseases of pancreas; Z98.890 Other specified postprocedural states
CPT/HCPCS: 71260; 74160; 82565

== ENCOUNTER 2022-05-03 09:43 | Outpatient (CLI) | payer MEDICARE ==
[~2022-05-03 09:43] MED LIST: Iopamidol-370 76% 500 ML 1 ML ONE
== END 2022-05-03 09:44 | disposition home or self-care (01) ==
LOC: BICCT 09:43
PROVIDERS: ATTEND Internal Medicine Hematology & Oncology
DX: C49.A2 Gastrointestinal stromal tumor of stomach (principal)
CPT/HCPCS: 71260; 74160; 82565; Q9967